=== PATIENT | female | born 1935 | race Caucasian/White ===

== ENCOUNTER → 2023-10-20 13:24 | Outpatient (REF) | payer OTHER, SELFPAY | LOC: HWRAD 13:24 | PROVIDERS: ATTENDING PHYSICIAN Nurse Practitioner Adult Health | DX: S19.9XXA Unspecified injury of neck, initial encounter (principal); W18.09XA Striking against other object with subsequent fall, initial encounter; M54.12 Radiculopathy, cervical region | CPT/HCPCS: 72125; 73590 ==

== ENCOUNTER → 2023-10-20 14:20 | Outpatient (REF) | payer OTHER, SELFPAY | LOC: RAD 14:20 | PROVIDERS: ATTENDING PHYSICIAN Nurse Practitioner Adult Health | DX: R60.0 Localized edema (principal); M79.661 Pain in right lower leg | CPT/HCPCS: 93971 ==

== ENCOUNTER 2024-01-28 09:02 | Emergency (ER) | payer OTHER, SELFPAY ==
[2024-01-28 09:11] VITALS: BP 146/71
--- NOTE | 2024-01-28 09:54 | ED.GENMED ---
History of Present Illness
General
Chief Complaint: DVT/Possible Blood Clot
Source: patient and family
Exam Limitations: none
Time Seen by Provider: 01/28/24 09:31
Nursing documentation reviewed up to this point in time: agreed with
History of Present Illness
History of Present Illness:
88-year-old female left calf swelling not a acute issues been going on for a while, she has chronic shortness of breath, she takes a diuretic doing a lot of walking recently had some painful swelling in her left anterior chavez spoke to her PCP
recommend she come in to get an ultrasound and some antibiotics, no fever no nausea no vomiting does not believe she was bitten although she is not sure no fevers
Past History
Past History
ED Past Medical History: CAD, Cancer (Skin), GERD, HTN, Hypercholesterolemia, Psychiatric (Anxiety and depression) and Other ('Always SOB', PNA, )
ED Past Surgical History: Gynecological (Hysterectomy, Ovarian cyst) and Orthopedic (left wrist repair)
Social History
Tobacco: Former smoker
Alcohol: Occasional (Wine 2 glasses)
Drug: None
Personal:
Living: alone
Employment: Retired
Review of Systems
Review of Systems
All Other Systems: Not applicable
Constitutional: Denies fever
Respiratory: Reports trouble breathing (Chronic); Denies cough
Cardiac: Reports no symptoms
ABD/GI: Reports no symptoms
Musculoskeletal: Reports edema and other (Swelling of the left anterior chavez)
Skin: Reports other (Painful swelling on her chavez)
Hematologic/Lymphatic: Reports no symptoms
Psychiatric: Reports no symptoms
Phy Exam
Physical Exam
Physical Exam:
Physical Exam
General: no apparent distress, not acutely ill
Neck: No jaundice
Lungs: no acute respiratory distress. clear bilaterally
Neuro: alert and oriented. no focal neurological deficits
Skin: no rash
Psychiatric: well kept. interactive and cooperative
Extremities: Slight swelling of the left calf, tenderness over the anterior chavez with some warmth no fluctuance
Course
Orders/Labs/Results
Orders:
Orders
01/28/24 09:41
US Periph Venous LOWER Ext LT Urgent
Comment:
Reason For Exam: swelling
01/28/24 09:55
Basic Metabolic Panel Urgent
Complete Blood Count/With Diff Urgent
01/28/24 10:16
Doxycycline Hyclate [Vibramycin] 100 mg 0.9% Sodium Chloride 250 ml [Nss] 250 ml IV NOW
Abnormal Lab Results
01/28/24
09:55
MPV 11.8 H fL
(7.4-10.4)
Monocytes % 9.7 H %
(1.7-9.3)
BUN 31 H mg/dl
(7-17)
01/28/24 09:55
01/28/24 09:55
Vital Signs
Initial and Last Documented VS:
Initial Vital Signs
Temp Pulse Resp BP Pulse Ox
97.9 F 67 16 146/71 98
01/28/24 09:11 01/28/24 09:11 01/28/24 09:11 01/28/24 09:11 01/28/24 09:11
Last Documented Vital Signs
Temp Pulse Resp BP Pulse Ox
97.9 F 64 16 128/61 95
01/28/24 09:11 01/28/24 10:51 01/28/24 09:11 01/28/24 10:51 01/28/24 10:51
MDM/Problems Addressed
Differential Diagnosis Includes:
Cellulitis, doubt abscess, strain strain insect bite DVT
MDM/Problems Addressed:
Left calf pain is
Chronic conditions affecting care: HTN
Acute Exacerbation and/or Progression of Chronic Illness: HTN
*Radiology
Radiology exam reviewed: radiology read reviewed
*Pulse Oximetry
Patient hypoxic: no
*Critical Care Note
Total Time (30-74mins, 75-104mins- exclusive of procedures): Not Applicable
Update Note
Update Note:
Allergies noted will start on Doxy
Ultrasound noted, no DVT does have a collection inclined to not drain the start antibiotics and warm compresses
ED Attending Note
-
Portions of this chart may have been created with voice recognition software.� Occasional wrong word or��sound alike� substitutions may have occurred due to the inherent limitations of voice recognition software.
Discharge Plan
Departure
Patient Disposition: Home (Routine Discharge)
Date of Disposition: 01/28/24
Time of Disposition: 11:02
Patient with high blood pressure during this ER visit?: No
Condition: Good
Discharge Problem:
Cellulitis
Instructions: Cellulitis (Skin Infection), Adult (DC)
Prescriptions:
No Action
omeprazole 20 MG capsule,delayed release(DR/EC)
20 mg PO DAILY
atenolol 25 MG tablet
25 mg PO QPM
amlodipine 5 MG tablet
5 mg PO DAILY
cholecalciferol (vitamin D3) 2,000 UNIT tablet
2,000 unit PO DAILY
ezetimibe 10 MG tablet
10 mg PO DAILY
cyanocobalamin (vitamin B-12) 1,000 MCG tablet
1,000 mcg PO DAILY
furosemide 20 MG tablet
40 mg PO DAILY
atenolol 50 MG tablet
50 mg PO DAILY
Patient Comments:
50 in am, 25 in pm
rosuvastatin 5 MG tablet
5 mg PO MOWEFR
sertraline [Zoloft] 25 mg Tablet
25 mg PO DAILY
polyethylene glycol 3350 17 gram Powder In Packet
17 grams PO DAILY Qty: 30 0RF
Referrals:
Toya Pineda CRNP [Family Provider] - Follow up in 2-3 days
Activity Restrictions/Additional Instructions:
Warm compresses to your legs twice a day
Antibiotics as prescribed
Return to the ER if increased redness fevers or swelling
Interventions
Interventions:
*Risk Screen - Suicide Last Done: 01/28/24 09:11
*General Assessment Last Done: 01/28/24 09:11
*Neglect/Abuse Screening Last Done: 01/28/24 09:11
Discharge Date and Time
Print Language: MONGOLIAN
[2024-01-28 10:05] LABS: % Basophils 0.3 % (0-2); % Eosinophils 1.1 % (0-6); % Immature Granulocytes 0.5 % (0-0.5); % Lymphocytes 29.3 % (20.5-51.1); % Monocytes 9.7 % (1.7-9.3); % Neutrophils 59.1 % (42.2-75.2); Absolute Eosinophils 0.1 10^3/uL (0-0.7); Absolute Lymphocytes 1.9 10^3/uL (1.2-3.4); Absolute Monocytes 0.6 10^3/uL (0.1-0.6); Absolute Neutrophils 3.9 10^3/uL (1.4-6.5); Hematocrit 39.7 % (37.0-47.0); Hemoglobin 13.5 g/dL (12.0-16.0); Mean Corpuscular Hgb 28.9 pg (27.0-31.0); Mean Platelet Volume 11.8 fL (7.4-10.4); Nucleated Red Blood Cells % 0 %; Platelet Count 152 10^3/uL (130-400); Red Blood Cell Count 4.67 10^6/uL (4.20-5.40); Red Cell Dist. Width 13.5 % (11.5-14.5); White Blood Cell Count 6.6 10^3/uL (4.8-10.8)
[2024-01-28 10:23] LABS: Blood Urea Nitrogen 31 mg/dl (7-17); Calcium 9.1 mg/dl (8.4-10.2); Carbon Dioxide 28 mmol/L (22-30); Chloride 102 mmol/L (98-107); Glucose 94 mg/dl (70-99); Sodium 140 mmol/L (135-145); eGFR > 60.00
[2024-01-28] MEDS: VIBRAMYCIN 260 MG IV (10:49)
[2024-01-28 10:51] VITALS: BP 128/61
[2024-01-28 12:20] VITALS: BP 139/72
== END 2024-01-28 12:21 | disposition home or self-care (01) ==
LOC: EMR 09:02
PROVIDERS: EMERGENCY PHYSICIAN Emergency Medicine; FAMILY PHYSICIAN Nurse Practitioner Adult Health
DX: L03.116 Cellulitis of left lower limb (principal); R06.02 Shortness of breath; M79.605 Pain in left leg; I25.10 Atherosclerotic heart disease of native coronary artery without angina pectoris; I10 Essential (primary) hypertension; F41.9 Anxiety disorder, unspecified; F32.A Depression, unspecified; E78.00 Pure hypercholesterolemia, unspecified; K21.9 Gastro-esophageal reflux disease without esophagitis; Z85.828 Personal history of other malignant neoplasm of skin; Z87.891 Personal history of nicotine dependence; Z87.01 Personal history of pneumonia (recurrent); Z88.0 Allergy status to penicillin; Z88.8 Allergy status to other drugs, medicaments and biological substances
CPT/HCPCS: 99284; 96365; 80048; 85025; 93971